=== PATIENT | female | born 1960 | race Caucasian/White ===

== ENCOUNTER → 2017-07-14 | Outpatient (CLI) | payer MEDICARE, OTHER ==
--- NOTE | 2017-07-15 09:34 | MM ---
Reason for exam: screening (asymptomatic). Last mammogram was performed 1 year and 5 months ago. History: Patient is postmenopausal and has history of colon cancer at age 53. Family history of breast cancer in maternal aunt at age 70. Physical Findings: A clinical breast exam by your physician is recommended on an annual basis and results should be correlated with mammographic findings. MG 3D Screening Mammo W/Cad Bilateral CC and MLO view(s) were taken. Prior study comparison: February 14, 2016, bilateral MG 3d screening mammo w/cad. April 26, 2011, CAD bilateral diagnostic mammogram. The breast tissue is heterogeneously dense. This may lower the sensitivity of mammography. There is no discrete abnormality. No significant changes when compared with prior studies. ASSESSMENT: Negative, BI-RAD 1 RECOMMENDATION: Routine screening mammogram of both breasts in 1 year.
== END | disposition home or self-care (01) ==
LOC: RADMAMWWP 10:56
PROVIDERS: ATTEND Family Medicine
DX: Z12.31 Encounter for screening mammogram for malignant neoplasm of breast (principal)
CPT/HCPCS: 77063; 77067

== ENCOUNTER → 2017-10-24 | Outpatient (CLI) | payer MEDICARE, OTHER ==
--- NOTE | 2017-10-24 15:11 | CT ---
EXAMINATION TYPE: CT lumbar spine wo con DATE OF EXAM: 10/24/2017 2:54 PM COMPARISON: NONE HISTORY: Lower back pain with history of colon cancer CT DLP: 987 mGycm Automated exposure control for dose reduction was used. Unenhanced CT of the lumbar spine was performed. Bone and soft tissue window settings are submitted as well as coronal and sagittal reconstructions. 5 lumbar-type vertebra are identified. Lumbar spine show straightening alignment without evidence of acute fracture or dislocation. Vertebral body heights are maintained. There is moderate to advanced m ultilevel disc space narrowing with moderate multilevel spurring L2-L3 through L5-S1 levels. Posterio r spur disc complexes are effacing anterior thecal sac at L2-L3 and L3-L4 levels on sagittal images. Larger spurring is effacing anterior thecal sac at L4-L5 level on sagittal images. Review of axial images shows the T12-L1 and L1-L2 levels to show mild facet degenerative changes bila terally. There is mild broad disc bulge at L1-L2 level. Spinal canal is preserved. Bilateral neural f oramina are patent. Axial images at L2-L3 level show mild to moderate facet degenerative changes bilaterally. There is mo derate broad disc bulge mildly effacing anterior thecal sac. There is moderate right and mild left-si ded anterior inferior neural foraminal narrowing. Axial images at L3-L4 level show mild/moderate broad disc bulge effacing anterior thecal sac. There i s mild facet arthropathy bilaterally. There is mild to moderate right-sided neural foraminal narrowin g. Left-sided neural foramen is patent. Axial images at L4-L5 level show prominent central spur disc complex effacing anterior thecal sac. Th ere is mild right and moderate left-sided neural foraminal narrowing due to marginal spurring. Axial images at L5-S1 level show moderate facet arthropathy bilaterally. Spinal canal is grossly pres erved. There is advanced left and mild to moderate right-sided neural foraminal narrowing due to favian inal spurring seen most prominently sagittal image 25. There is partial visualization of suspected tubal ligation clips in the upper pelvis axial image 81. There is simple appearing 2.8 cm cyst medially right kidney mid pole level axial image 33. There is p artial visualization of larger simple appearing 5 cm cyst upper pole level medially left kidney. Ther e is suspected 1.7 cm cyst right hepatic lobe coronal image 14. IMPRESSION: Straightening of lumbar spine with multilevel degenerative changes as detailed above.
== END | disposition home or self-care (01) ==
LOC: RADPROMAIN 14:08
PROVIDERS: ATTEND Family Medicine
DX: M47.816 Spondylosis without myelopathy or radiculopathy, lumbar region (principal)
CPT/HCPCS: 72131

== ENCOUNTER → 2017-12-10 | Outpatient (CLI) | payer MEDICARE, OTHER ==
--- NOTE | 2017-12-10 09:07 | CT ---
EXAMINATION TYPE: CT brain wo/w con DATE OF EXAM: 12/10/2017 COMPARISON: HISTORY: Mass or neoplasm of brain (D33.2) per order. Headache and vision changes per patient. Histor y of colon cancer. CT DLP: 2072 mGycm Automated exposure control for dose reduction was used. CONTRAST: CT scan of the head is performed without and with IV Contrast, patient injected with 100 mL of Isovue 300. FINDINGS: Noncontrast images show no acute intracranial hemorrhage or midline shift. The ventricles and sulci are within normal limits in size for patient's age. Pituitary gland felt upper limits of normal in si ze within sella turcica with convex superior margin. Suprasellar cistern is maintained. Optic chiasm is not effaced. Post contrast images show no suspicious enhancing mass. Dominant right vertebral derrick ry incidentally noted. Pituitary stalk shows normal enhancement in the midline. The globes are intact and the visualized sinuses are clear. Some vascular calcification distal internal carotid arteries b ilaterally is seen. IMPRESSION: No suspicious enhancing mass identified to suggest metastatic disease to the brain.
== END | disposition home or self-care (01) ==
LOC: RADCTMAIN 08:18
PROVIDERS: ATTEND Family Medicine
DX: D33.2 Benign neoplasm of brain, unspecified (principal); Z88.6 Allergy status to analgesic agent
CPT/HCPCS: 70470; Q9967

== ENCOUNTER → 2018-11-10 | Outpatient (CLI) | payer MEDICARE, OTHER ==
--- NOTE | 2018-11-11 09:57 | MM ---
Reason for exam: screening (asymptomatic). Last mammogram was performed 1 year and 4 months ago. History: Patient is postmenopausal and has history of colon cancer at age 53. Family history of breast cancer in maternal aunt at age 70. Physical Findings: A clinical breast exam by your physician is recommended on an annual basis and results should be correlated with mammographic findings. MG 3D Screening Mammo W/Cad Bilateral CC and MLO view(s) were taken. Prior study comparison: July 14, 2017, bilateral MG 3d screening mammo w/cad. February 14, 2016, bilateral MG 3d screening mammo w/cad. The breast tissue is heterogeneously dense. This may lower the sensitivity of mammography. No suspicious abnormality. No significant changes when compared with prior studies. ASSESSMENT: Negative, BI-RAD 1 RECOMMENDATION: Routine screening mammogram of both breasts in 1 year.
== END | disposition home or self-care (01) ==
LOC: RADMAMWWP 09:36
PROVIDERS: ATTEND Family Medicine
DX: Z12.31 Encounter for screening mammogram for malignant neoplasm of breast (principal)
CPT/HCPCS: 77063; 77067

== ENCOUNTER → 2018-12-23 | Outpatient (CLI) | payer MEDICARE, OTHER ==
[2018-12-23 10:22] VITALS: BP 96/57; PULSE 65; RESP 18; TEMP 97.9; BMI 34.2
--- NOTE | 2018-12-23 13:19 | P.HPOB ---
History of Present Illness H&P Date: 12/23/18 Chief Complaint: The patient is here for her routine gynecologic exam. This is a 58-year-old with an LMP of 2008. The patient is here to establish with this office. She is without gynecologic complaints and denies any postmenopausal bleeding. Review of Systems She denies respiratory, cardiac, or G.I. problems. Past Medical History Past Medical History: Cancer, GERD/Reflux Additional Past Medical History / Comment(s): colostomy since July 2013, colorectal cancer, DDD, chronic back and shoulder problems. Port a cath on rt side. 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 History of Any Multi-Drug Resistant Organisms: None Reported Past Surgical History: Bowel Resection, Tubal Ligation Additional Past Surgical History / Comment(s): Shoulder RT 2007. Partial colectomy for [id number]. Colostomy. Repair of ureter. [id number](, next after 5yrs). Past Anesthesia/Blood Transfusion Reactions: No Reported Reaction Past Psychological History: No Psychological Hx Reported Smoking Status: Current every day smoker (1 pack per day) Past Alcohol Use History: None Reported Past Drug Use History: None Reported Additional History: She is a . She has been with her boyfriend since about 1995 and lives with him. For her job she trims marijuana plants. - Past Family History Father Family Medical History: Cancer Additional Family Medical History / Comment(s): Lung cancer. Brother(s) Family Medical History: Cancer Additional Family Medical History / Comment(s): Lung cancer. Another brother had esophageal cancer. Mother Family Medical History: No Reported History Additional Family Medical History / Comment(s): Maternal aunt had breast cancer. Medications and Allergies Home Medications Medication Instructions Recorded Confirmed Type Baclofen [Lioresal] 20 mg PO HS 12/23/18 12/23/18 History Hydrocodone/Acetaminophen [[place] 1 tab PO Q6H PRN 12/23/18 12/23/18 History 10-325] Ranitidine HCl [Zantac] 75 mg PO BID 12/23/18 12/23/18 History Allergies Allergy/AdvReac Type Severity Reaction Status Date / Time NSAIDS (Non-Steroidal AdvReac Rash/Hives Verified 12/23/18 10:15 Anti-Inflamma Exam Vital Signs Temp Pulse Resp BP Pulse Ox 12/23/18 10:19 97.9 F 65 18 96/57 93 L Intake and Output 12/22/18 12/23/18 12/23/18 22:59 06:59 14:59 Other: Weight 87.543 kg Height 5'3", weight 193 pounds, BMI 34.2. This is a well-developed well-nourished white female who is alert and oriented times 3 in no acute distress. HEENT: Within normal limits. NECK: Supple without mass or thyromegaly. CHEST AND LUNGS: there is mild prolonged expiration without wheezes or rhonchi. Otherwise clear to auscultation. HEART: Regular rate and rhythm. BREASTS: Are without mass or discharge. AXILLARY EXAM: Negative for adenopathy. BACK: Negative for CVA tenderness. ABDOMEN: Soft, nontender, without palpable masses. There is a colostomy bag left of the midline in the lower abdomen. The area is noninflamed. PELVIC EXAM: Normal external genitalia with mild atrophy. Cervix appears normal with mild atrophy. Abnormal tissue was noted in the posterior fornix of the vagina. The tissue is soft and slightly brownish pink in appearance. One piece was polypoid in shape measuring approximately 4 x 5 mm. A 2nd piece of tissue measured approximately 15 x 7 mm. These pieces of tissue were removed simply by wiping the tissue with a long cotton swab .the tissue was sent for pathological examination. The vagina had mild to moderate atrophy. There is no unusual discharge. There is no evidence of prolapse. The uterus is posterior and somewhat fixed in position.the uterus is nongravid size and nontender. There are no palpable adnexal masses or tenderness. RECTAL EXAM: the rectum is closed and therefore rectal examination could not be performed. EXTREMITIES: Nontender. IMPRESSION: 1. 58-year-old menopausal female with abnormal vaginal tissue in the posterior vaginal fornix. Differential diagnosis will include vaginal cancer, benign polypoid mucosa, possible cervical polyp or possible prolapsed endometrial polyp tissue. This abnormal tissue may or may not be related to her previous radiation therapy for colorectal cancer. 2. History of colorectal cancer status post colectomy, chemotherapy and radiation therapy. 3. Fixed pelvic structures probably secondary to previous radiation therapy for colorectal cancer. PLAN: 1. Pap smear was performed. 2. Self breast awareness was discussed with the patient. 3. Screening mammogram was done on 11/10/2018 and was negative. This will be done yearly. 4. The abnormal vaginal tissue was sent for pathological examination. 5. We will try to obtain records from her CT scan that was done at [facility] earlier this year to see if there are any gynecologic abnormalities noted. 6. I have recommended that she quit smoking. We have discussed many reasons why this is important. 7.Osteoporosis prevention was discussed. I have stressed the importance of adequate calcium, vitamin D and regular exercise. Recommended amounts of calcium and vitamin D were also discussed.
--- NOTE | 2018-12-29 15:06 | P.PN ---
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 Simpson. He states he will contact the patient to make an appointment so there can be further workup. She has been seeing Dr. Simpson for her history of colorectal cancer.
== END | disposition home or self-care (01) ==
LOC: WWCWWP 10:06
PROVIDERS: ATTEND Obstetrics & Gynecology
DX: Z53.9 Procedure and treatment not carried out, unspecified reason (principal)

== ENCOUNTER → 2019-01-16 | Outpatient (CLI) | payer MEDICARE, OTHER ==
--- NOTE | 2019-01-18 07:14 | PE ---
EXAMINATION TYPE: PET CT fusion skull to thigh DATE OF EXAM: 01/16/2019 COMPARISON: Outside full body CT December 31, 2018. HISTORY: Colorectal cancer progress study originally diagnosed and treated 2013 TECHNIQUE: Following the intravenous administration of 11.94 mCi of F-18 FDG, whole body images are performed from the skull base to the midthigh. Images are reviewed on the computer in the coronal, a xial, and sagittal planes. Reconstructed rotating images are created on independent workstation and reviewed on the computer. A noncontrast CT is performed in conjunction with the PET scan. SCAN: Subsequent Scan FINDINGS: SKULL BASE AND NECK: No areas of suspicious hypermetabolic uptake. CHEST, MEDIASTINUM, AND HILAR REGION: Background mild underlying emphysematous changes redemonstrated . Few scattered tiny nodules on recent CT are less well seen on current study. No areas of suspicious hypermetabolic uptake are noted. ABDOMEN AND PELVIS: Normal excretion in both kidneys. No areas of suspicious hypermetabolic uptake. T here is left lower quadrant colostomy and parastomal hernia. There is rectal remnant and abnormal sof t tissue presacral space without abnormal hypermetabolic uptake. OSSEOUS STRUCTURES: Abnormal hypermetabolic uptake surrounds surrounds right shoulder prosthesis suleman elate for infectious or inflammatory process. OTHER CT: Enlarged pulmonary arteries, CT finding consistent with underlying pulmonary hypertension. Coronary artery calcification is present which is noted marker for underlying coronary artery disease . Some simple-appearing thin-walled cysts throughout the liver are redemonstrated. There are some simpl e appearing scattered thin-walled cysts scattered throughout both kidneys. There is widemouth ventral wall hernia containing fat and some bowel loops. No bowel obstruction is present. IMPRESSION: No convincing evidence of suspicious hypermetabolic uptake to suggest malignant neoplasti c recurrence.
== END | disposition home or self-care (01) ==
LOC: RADPETMAIN 07:57
PROVIDERS: ATTEND Internal Medicine Hematology & Oncology
DX: C20 Malignant neoplasm of rectum (principal)
CPT/HCPCS: 78815; A9552

== ENCOUNTER → 2019-08-09 | Day surgery (SDC) | payer MEDICARE, OTHER ==
[~2019-08-09] MED LIST: IOPAMIDOL-250 50ML BTL IV ONE
[2019-08-09 12:27] VITALS: BP 125/88; PULSE 59; RESP 16; TEMP 97.7
== END ==
LOC: CATHCVL 12:03
PROVIDERS: ATTEND Radiology Diagnostic Radiology
DX: T82.514A Breakdown (mechanical) of infusion catheter, initial encounter (principal); C20 Malignant neoplasm of rectum; K59.00 Constipation, unspecified; G60.0 Hereditary motor and sensory neuropathy; Z92.21 Personal history of antineoplastic chemotherapy; Z92.3 Personal history of irradiation; Z87.891 Personal history of nicotine dependence; Z79.899 Other long term (current) drug therapy; Z88.6 Allergy status to analgesic agent; Z88.8 Allergy status to other drugs, medicaments and biological substances; Z98.51 Tubal ligation status; Z98.890 Other specified postprocedural states; Z80.1 Family history of malignant neoplasm of trachea, bronchus and lung; Z80.0 Family history of malignant neoplasm of digestive organs; Z80.7 Family history of other malignant neoplasms of lymphoid, hematopoietic and related tissues
CPT/HCPCS: 36598; Q9966

== ENCOUNTER → 2019-11-27 | Outpatient (CLI) | payer MEDICARE, OTHER ==
[2019-11-27 09:25] LABS: African American GFR (CKD) >90 (>60 ml/min/1.73 sqM); Blood Urea Nitrogen 17 mg/dL (7-17); Non-African American GFR(CKD) >90 (>60 ml/min/1.73 sqM)
--- NOTE | 2019-11-27 12:06 | CT ---
EXAMINATION TYPE: CT ChestAbdPelvis w con DATE OF EXAM: 11/27/2019 COMPARISON: 01/16/2019, 12/31/2018 HISTORY: follow up rectal cancer CT DLP: 900.6 mGycm Automated exposure control for dose reduction was used. CONTRAST: CT scan of the chest, abdomen and pelvis is performed with Oral Contrast and with IV Contrast, patien t injected with 100 mL of Isovue 370. FINDINGS: LUNGS: Diffuse emphysematous changes are noted. There is a stable 4 mm nodule right lung apex There is a stable 4 mm nodule medial superior segment right lower lobe axial image 22 There is a stable 3 mm left upper lobe peripheral nodule. Stable 4 mm left basilar lower lobe nodule. No evidence of consolidation or pleural effusion. No pneumothorax. No new pulmonary nodules.. MEDIASTINUM: There are no greater than 1 cm hilar or mediastinal lymph nodes. No pericardial effusi on is seen. OTHER: Multinodular thyroid changes are seen correlate with ultrasound. Mediport catheter noted ther e is postsurgical change involving the shoulder. Hypertrophic and degenerative changes of vertebral LIVER/GB: 2 cm hypodensity within the peripheral right lobe of the liver are stable most compatible w ith a cyst. Additional hypodensities within the liver are also stable but too small to characterize. Statistically most likely related to cysts. PANCREAS: No significant abnormality is seen. SPLEEN: No significant abnormality is seen. ADRENALS: No significant abnormality is seen. KIDNEYS: Stable simple appearing left renal cysts. Multiple parapelvic renal cysts are noted. Mild pr ominence of the right collecting system is similar to the prior exam. BOWEL: Bowel gas pattern nonspecific. There is no obstruction. There is a parastomal hernia on the l eft with a widemouth measuring 4.7 cm.. LYMPH NODES: No greater than 1 cm abdominal or pelvic lymph nodes are appreciated. There is a 9 mm ly mph node in the right iliac chain axial image 99 OSSEOUS STRUCTURES: Hypertrophic change and degenerative change of the spine. Deformity near the vert ebral costal junction in the thoracic spine has a benign appearance. Seen at multiple levels likely t he basis of large spurring. L4-5 and L5-S1 there is disc protrusions with severe hypertrophic changes and suspected canal stenosis. Multilevel foraminal encroachment suspected. No destructive changes. T iny area of sclerosis involving the posterior right acetabulum and femur stable most typical bone isl and. OTHER: There is a widemouth anterior abdominal wall hernia adjacent to the rectus muscle. No obstruct ion Abnormal attenuation in the presacral space is stable from the prior exam. There is some induration p resacral fat. Could be related to post therapeutic and postsurgical changes given stability and IMPRESSION: 1. Stable rectal and presacral thickening unchanged from the prior exam. 2. Stable pulmonary nodules measuring less than 5 mm unchanged from the prior exam. No new pulmonary nodules or adenopathy. 3. Largest hepatic lesion is stable measures 2 Hounsfield units compatible with a simple cyst. Stable additional subcentimeter hepatic lesions too small to characterize but statistically most likely rel ated to cysts. 4. Stable mild right hydronephrosis and bilateral simple appearing renal cysts 5. Stable left-sided parastomal hernia with no evidence of obstruction. 6. There is no evidence of pathologic adenopathy measuring short axis I cm or greater. However, there is a 9 mm lymph node in the right pelvis measuring short axis of 9 mm in the right iliac chain not s een with certainty on the prior exam and closeclinical surveillance recommended
== END | disposition home or self-care (01) ==
LOC: RADCTMAIN 08:34
PROVIDERS: ATTEND Internal Medicine Hematology & Oncology
DX: R91.8 Other nonspecific abnormal finding of lung field (principal); N28.1 Cyst of kidney, acquired; K43.5 Parastomal hernia without obstruction or gangrene; N13.30 Unspecified hydronephrosis; K76.9 Liver disease, unspecified; R59.0 Localized enlarged lymph nodes; C20 Malignant neoplasm of rectum; Z88.6 Allergy status to analgesic agent
CPT/HCPCS: 82565; 84520; 71260; 74177; 36415; Q9967

== ENCOUNTER → 2020-03-01 | Outpatient (CLI) | payer MEDICARE, OTHER ==
[2020-03-01 11:35] LABS: African American GFR (CKD) >90 (>60 ml/min/1.73 sqM); Blood Urea Nitrogen 15 mg/dL (7-17); Non-African American GFR(CKD) >90 (>60 ml/min/1.73 sqM)
--- NOTE | 2020-03-01 13:18 | CT ---
EXAMINATION TYPE: CT ChestAbdPelvis w con DATE OF EXAM: 03/01/2020 COMPARISON: Prior CT November 27, 2019 and older studies. PET/CT January 16, 2019 HISTORY: Rectal CA CT DLP: 992.7 mGycm. Automated Exposure Control for Dose Reduction was Utilized. CONTRAST: CT scan of the thorax, abdomen and pelvis is performed with oral and with IV Contrast, patient inject ed with 100 mL of Isovue 300. FINDINGS: LUNGS: Stable 3 mm left upper lobe peripheral nodule axial image 10. No pleural effusion or pneumotho rax. Stable 3 to 4 mm probable calcified right upper lobe nodule axial image 11. Stable 3 to 4 mm sup erior right lower lobe nodule axial image 19. No new or enlarging greater than 4 mm nodules. No pleur al effusion or pneumothorax. MEDIASTINUM: There are no greater than 1 cm hilar or mediastinal lymph nodes. No cardiomegaly or p ericardial effusion is seen. No new right ventricular dilatation. New thrombus in the left lower lob e branch with segmental and subsegmental extension beginning on axial image 30. There is a 4 vessel o rigin from aortic arch which is normal variant.3 OTHER: Stable right internal jugular Mediport catheter. LIVER/GB: A few simple-appearing thin-walled cysts scattered to the liver are redemonstrated. Hypoden se small lesions left hepatic lobe slightly more prominent from prior studies, for reference 10 mm le mita axial image 50 and 9 mm lesion lateral left hepatic dome image 51. PANCREAS: No significant abnormality is seen. SPLEEN: No significant abnormality is seen. ADRENALS: No significant abnormality is seen. KIDNEYS: Symmetric cortical medullary uptake and excretion with persistent severe right and moderate left-sided hydronephrosis. Right ureter crosses the midline. No significant change from prior study. Stable mildly distended bladder. A few simple appearing thin-walled cysts throughout both kidneys are redemonstrated. BOWEL: There is diverting left lower quadrant colostomy redemonstrated. Parastomal hernia noted. No s uspicious small or large bowel dilatation. Oral contrast reaches level of right colon. Some fecal pro minence in the colon. Surgical clips presacral region with abnormal soft tissue near axial image 105 shows no significant change or progression from most recent study. Some air in the inferior rectum/an us redemonstrated inferior to this. GENITAL ORGANS: No gross abnormality seen. LYMPH NODES: No greater than 1cm abdominal or pelvic lymph nodes are appreciated. OSSEOUS STRUCTURES: S shaped scoliosis. Moderate multilevel spurring. Moderate multilevel disc space narrowing. Moderate joint space loss both hips. OTHER: No significant additional abnormality is seen. IMPRESSION: 1. New left lower lobe pulmonary emboli with segmental and subsegmental extension. No CT evidence for RV strain. 2. Small hypodense lesions throughout the liver slightly more prominent in size and number from prior 2 CTs, hepatic metastatic disease cannot be excluded. Consider PET/CT or upper protocol contrast-enh anced MRI to further evaluate. Stable finding presacral space likely reflecting treated neoplasm. No interval progression from most recent CT noted. Critical results of acute pulmonary embolism called to ordering oncologist via telephone at time of d ictation. A Document Only message has been documented for Antony Simpson MD in the [email or web address] Critical Result system on 03/01/2020 1:15 PM, Message ID [id number].
== END | disposition home or self-care (01) ==
LOC: RADCTMAIN 10:40
PROVIDERS: ATTEND Internal Medicine Hematology & Oncology
DX: I26.99 Other pulmonary embolism without acute cor pulmonale (principal); K76.9 Liver disease, unspecified; C20 Malignant neoplasm of rectum; Z88.8 Allergy status to other drugs, medicaments and biological substances
CPT/HCPCS: 82565; 84520; 71260; 74177; 36415; Q9967 ×2

== ENCOUNTER → 2020-03-17 | Outpatient (CLI) | payer MEDICARE, OTHER ==
--- NOTE | 2020-03-19 14:29 | PE ---
Nuclear medicine PET/CT HISTORY: Rectal carcinoma, subsequent Patient received 11.4 mCi F-18 FDG intravenously in delayed scanning was performed from skull base to the mid thighs. Localization and attenuation correction CT scan was performed. Correlation to prior CT scan 03/01/2020, prior nuclear medicine PET/CT 01/16/2019 Chest and neck: There is no suspicious uptake. No evident lung mass, no pleural or pericardial effusi on. Emphysematous changes are present within the lungs. Port-A-Cath present in the right pectoral reg ion coursing via the internal jugular approach into the superior vena cava. ABDOMEN: Hypodense foci within the liver shows no associated uptake. There is no retroperitoneal matteo opathy. Some mild uptake present at the level of patient's ostomy in the left lower quadrant is likel y physiologic. Abnormal soft tissue in the presacral region does not show associated uptake, there is postop change. There is uptake identified associated with patient's right shoulder prosthesis which is indeterminate . Osseous structures show no additional suspicious uptake. IMPRESSION: Abnormal uptake associated with patient's right shoulder prosthesis. No additional suspic ious uptake.
== END | disposition home or self-care (01) ==
LOC: RADPETMAIN 08:37
PROVIDERS: ATTEND Internal Medicine Hematology & Oncology
DX: R93.89 Abnormal findings on diagnostic imaging of other specified body structures (principal); C20 Malignant neoplasm of rectum; Z92.21 Personal history of antineoplastic chemotherapy; Z96.611 Presence of right artificial shoulder joint
CPT/HCPCS: 78815; A9552

== ENCOUNTER → 2020-06-27 | Outpatient (CLI) | payer MEDICARE, OTHER ==
--- NOTE | 2020-06-27 12:24 | CT ---
EXAMINATION TYPE: CT ChestAbdPelvis w con DATE OF EXAM: 06/27/2020 COMPARISON: PET/CT 03/17/2020, CT 03/01/2020 HISTORY: Rectal Cancer, Observation for mets CT DLP: 1814 mGycm Automated exposure control for dose reduction was used. CONTRAST: CT scan of the chest, abdomen and pelvis is performed with Oral Contrast and with IV Contrast, patien t injected with 100 ml mL of Isovue 300. FINDINGS: LUNGS: The lungs are stable with emphysematous change, there is no concerning parenchymal mass or nod ule identified. There is no pleural effusion or pneumothorax seen. The tracheobronchial tree is pa tent. MEDIASTINUM: There are no greater than 1 cm hilar or mediastinal lymph nodes. No pericardial effusi on is seen. Pulmonary embolism seen on prior CT has resolved AORTA: No significant abnormality is seen. For super aortic branch vessels are present OTHER: Thyroid shows a nodular appearance, there is a right pectoral central venous catheter which c ourses via the superior vena cava and likely a right jugular approach. LIVER/GB: No significant double change is appreciated. PANCREAS: No significant abnormality is seen. SPLEEN: No significant abnormality is seen. ADRENALS: No significant abnormality is seen. KIDNEYS: No significant interval change is seen, suspect a right ureteral to ureteral bypass, correla te with history, right-sided hydronephrosis shows a similar appearance. REPRODUCTIVE ORGANS: Not seen. BOWEL: The postop changes with the ostomy in the left lower quadrant containing colon and bowel are again noted, there is presacral soft tissue showing a stable appearance with some air density present as on prior exams without significant change. FREE AIR: No Free Air visible. ASCITES: None seen. RETROPERITONEAL ADENOPATHY: No retroperitoneal adenopathy is seen. LYMPH NODES: No greater than 1 cm abdominal or pelvic lymph nodes are appreciated. URINARY BLADDER: Distended with urine PELVIC ADENOPATHY: None visualized. OSSEOUS STRUCTURES: Stable degenerative disc disease is present, there may be sequestered disc fragme nt posterior to the L5 vertebral body, there is multilevel facet arthropathy, there may be spinal salma nosis, lumbar MRI may be of benefit. IMPRESSION: No evident metastasis. Interval improvement in patient's pulmonary embolus. Postop change s.
== END | disposition home or self-care (01) ==
LOC: RADCTMAIN 07:26
PROVIDERS: ATTEND Internal Medicine Hematology & Oncology
DX: I26.99 Other pulmonary embolism without acute cor pulmonale (principal); C20 Malignant neoplasm of rectum; Z98.890 Other specified postprocedural states; Z88.6 Allergy status to analgesic agent
CPT/HCPCS: 71260; 74177; Q9967

== ENCOUNTER → 2020-10-27 | Outpatient (CLI) | payer MEDICARE, OTHER ==
--- NOTE | 2020-10-31 12:15 | PE ---
EXAMINATION TYPE: PET CT fusion skull to thigh DATE OF EXAM: 10/27/2020 COMPARISON: 06/27/2020 just pelvis Prior PET/CT: 03/17/2020 HISTORY: Rectal cancer TECHNIQUE: Following the intravenous administration of 11.41 mCi of F-18 FDG, whole body images are performed from the skull base to the midthigh. Images are reviewed on the computer in the coronal, a xial, and sagittal planes. Reconstructed rotating images are created on independent workstation and reviewed on the computer. A localization and attenuation correction CT is performed in conjunction with the PET scan. DLP: 429.51 mGycm SCAN: Subsequent Scan Blood glucose: 107 mg/dL Average Mediastinum SUV: 1.37 Average Liver SUV: 2.2 FINDINGS: NECK: No abnormal uptake THORAX: There is intense uptake around the right shoulder prosthesis compatible with postsurgical dino nge and/or frozen shoulder. Chest is otherwise unremarkable. ABDOMEN: No abnormal uptake PELVIS: No abnormal uptake OSSEOUS STRUCTURES: Uptake at the right shoulder prosthesis level. Abnormal uptake is not otherwise e vident. Injection site left antecubital fossa is likely present. LOCALIZATION CT: Renal cysts are present on the left kidney. There is a cyst on the right lobe liver colostomy site has some minimal inflammatory change superficial surface. Anterior abdominal wall parul ia with broad opening without obstructive loops of bowel are present. COMPARISON: No significant interval change is evident. IMPRESSION: 1. No suspicious changes to suggest recurrent or metastatic rectal cancer. 2. Uptake at the right shoulder be related to the patient's prosthesis and postsurgical change. This is stable from comparison.
== END | disposition home or self-care (01) ==
LOC: RADPETMAIN 07:55
PROVIDERS: ATTEND Internal Medicine Hematology & Oncology
DX: C20 Malignant neoplasm of rectum (principal); Z96.611 Presence of right artificial shoulder joint
CPT/HCPCS: 78815; A9552

== ENCOUNTER → 2022-12-21 | Outpatient (CLI) | payer MEDICARE, OTHER ==
--- NOTE | 2022-12-21 16:30 | PE ---
EXAMINATION TYPE: PET CT fusion skull to thigh DATE OF EXAM: 12/21/2022 CLINICAL INDICATION:Female, 62 years old with history of C20; TECHNIQUE: Following the intravenous administration of 8.71 mCi of F-18 FDG, whole body images are performed from the skull base to the midthigh. Images are reviewed on the computer in the coronal, a xial, and sagittal planes. Reconstructed rotating images are created on independent workstation and reviewed on the computer. A non-contrast CT is performed in conjunction with the PET scan. Glucose level 91 mg/dL CT DLP: 456 mGycm, Automated exposure control for dose reduction was used. COMPARISON: CT 06/24/2020 10/24/2017, 11/27/2019., PET/CT 10/27/2020, FINDINGS: Mediastinal SUV mean is 1.7. Hepatic parenchyma SUV mean is 2.2. SKULL BASE AND NECK: No suspicious radiotracer activity. CHEST, MEDIASTINUM, AND HILAR REGION: No suspicious radiotracer activity. ABDOMEN AND PELVIS: Abnormal uptake anterior to the spine max SUV 8.5 just below the aortic bifurcati on. This correlates with the renal collecting system on 11/27/2019 CT with congenital /surgical varian t anatomy. MUSCULOSKELETAL STRUCTURES: No suspicious radiotracer activity. OTHER CT: Right chest wall port distal tip terminating in the superior vena cava. Right shoulder arth roplasty changes. Hardware appears intact. Bilateral renal cysts and hepatic cysts. 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 IMPRESSION: 1. No suspicious uptake. 2. 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 Findings seen on 11/27/2019 and dating back to 2017. 3. FDG activity around the right shoulder prosthesis which was seen on prior in 2020. Clinical corre lation advised.
== END | disposition home or self-care (01) ==
LOC: RADPETMAIN 12:51
PROVIDERS: ATTEND Internal Medicine Hematology & Oncology
DX: C20 Malignant neoplasm of rectum (principal); Z96.611 Presence of right artificial shoulder joint
CPT/HCPCS: 78815; A9552

== ENCOUNTER → 2023-07-01 | Outpatient (CLI) | payer MEDICARE, OTHER ==
--- NOTE | 2023-07-01 12:09 | FL ---
EXAMINATION TYPE: FL cystogram DATE OF EXAM: 07/01/2023 12:02 PM CLINICAL INDICATION:Female, 62 years old with history of S37.23 hx bladder injury; , [facility] COMPARISON: 12/21/2022 TECHNIQUE: The study was explained to the patient and history was elicited. Prior to initiation of t he study a sports psychologist radiograph of the abdomen and pelvis was obtained. A urinary bladder catheter was pl aced under sterile technique by the department of radiology and 250 ccs of Cystografin were instilled via the urinary catheter under intermittent spot fluoroscopy. Fluoroscopy time 1 minute 29 seconds. Fluoroscopy images: 0 Radiographs images: 22 DAP: Not reported mGycm2 FINDINGS: The sports psychologist fluoroscopic image of the pelvis demonstrated no acute intrapelvic or intra-abdominal patho logy. Scattered surgical clips are present. After the urinary bladder was distended, oblique, lateral and frontal radiographs were obtained. The bladder wall demonstrates a smooth contour without evide nce of focal abnormal outpouching, extrinsic impression or contrast extravasation. There was no visu alized evidence of vesiculo-ureteral reflux. IMPRESSION: No evidence for extravasation.
== END | disposition home or self-care (01) ==
LOC: RADFLMAIN 10:40
PROVIDERS: ATTEND Urology
DX: S37.23XA Laceration of bladder, initial encounter (principal); N39.9 Disorder of urinary system, unspecified
CPT/HCPCS: 74430; Q9958

== ENCOUNTER → 2024-04-22 | Outpatient (CLI) | payer MEDICARE, OTHER ==
--- NOTE | 2024-04-22 13:36 | US ---
EXAMINATION TYPE: US thyroid st tissue head/neck DATE OF EXAM: 04/22/2024 COMPARISON: NONE CLINICAL INDICATION: Female, 63 years old with history of E04.1 THYROID NODULE; nodule seen on recent CT TECHNIQUE: Grayscale and color Doppler imaging of the thyroid gland. FINDINGS: GLAND SIZE: Right Lobe: 4.4 x 1.8 x 2.8 cm Overall Parenchyma: heterogeneous Left Lobe: 3.5 x 2.4 x 3.1 cm Overall Parenchyma: heterogeneous Isthmus Thickness: 0.4 cm NODULES RIGHT: # of nodules measured on right: multiple nodules, measured largest 1. 1.5 X 1.3 x 0.8 cm, upper , mixed cystic and solid, hypoechoic nodule, which is wider than tall, with smooth margins, with echogenic foci. TR 3. Prior size: TECHNICAL WRITING LEAD/MGR LEFT: # of nodules measured on left: 1 1. 3.0 X 2.5 x 2.5 cm, mid, mixed cystic and solid, hypoechoic nodule, which is wider than tall, wi th smooth margins, without echogenic foci. TR 3. Prior size: TECHNICAL WRITING LEAD/MGR ISTHMUS: # of nodules measured in the isthmus: 0 Bilateral neck scanned, no evidence of lymphadenopathy. IMPRESSION: 1. TR 3 nodule left thyroid meets the criteria for FNA biopsy. 2. TR 3 right thyroid nodule for which continued surveillance recommended. 2017 ACR TI-RADS LEVEL: TR-RADS 3 - Mildly Suspicious: Follow if > 1.5 cm, FNA if > 2.5 cm *Highest TI-RADS level nodule reported [email or web address] [facility], , 04/22/2024 1:33 PM
== END | disposition home or self-care (01) ==
LOC: RADUSWWP 12:20
PROVIDERS: ATTEND Family Medicine
DX: E04.2 Nontoxic multinodular goiter (principal)
CPT/HCPCS: 76536

== ENCOUNTER 2024-06-24 08:23 | Day surgery (SDC) | payer MEDICARE, OTHER ==
[2024-06-24 09:28] VITALS: RESP 18; TEMP 98.2
[2024-06-24 10:18] VITALS: BP 112/64; PULSE 97
--- NOTE | 2024-06-24 14:01 | US ---
EXAMINATION TYPE: US FNA thyroid first lesion DATE OF EXAM: 06/24/2024 9:53 AM COMPARISON: 04/22/2024 CLINICAL INDICATION: Female, 63 years old with history of E04.1 NONTOXIC SINGLE THYROID NODULE, , RADIOLOGIST: Dr. Huggins PROCEDURE: An initial scanning showed the TR3 complex cyst nodule in the left lobe measuring 2.9 cm. This is tar geted for FNA. The procedure, along with the risks and complications were discussed with the patient. Patient agreed to proceed with the procedure. A consent was signed and placed in patient's chart. Maximum sterile barrier technique was utilized. Timeout was performed by myself. The left side of the neck was sterilely prepped and draped in the usual fashion. 8 milliliters of 1% Lidocaine were utili zed to anesthetize the superficial and deep soft tissues at the nodule. Following that, under ultrasound guidance, 5 passes were made into the nodule with 5 cc syringe sucti on. After each pass, the sample was placed on a slide and then sent for pathology. Upon conclusion, hemostasis was achieved, and patient was discharged home in satisfactory condition. IMPRESSION: Successful FNA of the 2.9 cm TR3 nodule left thyroid lobe. Pathology pending. [facility], , 06/24/2024 1:58 PM
== END 2024-06-24 10:05 | disposition home or self-care (01) ==
LOC: RADPROMAIN 08:23
PROVIDERS: ATTEND Internal Medicine
DX: E04.1 Nontoxic single thyroid nodule (principal)
CPT/HCPCS: 10005; 88173; 88305